=== PATIENT | female | born 1960 | race Caucasian/White ===

== ENCOUNTER 2023-11-24 08:45 | Day surgery (SDC) | payer OTHER ==
[2023-11-18 16:24] VITALS: BP 109/70
[~2023-11-24] VITALS: Ht 170.2 cm; Wt 79.5 kg
--- NOTE | ~2023-11-24 | OR ---
[facility] [address], [place] [address] [address] DATE OF OPERATION: 11/24/2023 SURGEON: Henrik Kelley MD PREOPERATIVE DIAGNOSIS: Right fifth metatarsal fracture. POSTOPERATIVE DIAGNOSIS: Right fifth metatarsal fracture. PROCEDURE PERFORMED: Open reduction and internal fixation, right fifth metatarsal. BURNISHER AND BUMPER: Jennifer Mendez PA-C. Jennifer was present and critical for all portions of procedure. ANESTHESIA: General. TOURNIQUET TIME: 32 minutes. IMPLANTS: A six hole Synthes 2.0 plate with six screws. BRIEF HISTORY: Maddi is a 63-year-old female, who suffered a ground level fall fracturing her metacarpal which was displaced and foreshortened. Risks, benefits, and alternatives of surgery were discussed with her and she elected to proceed. PROCEDURE IN DETAIL: Once consent was obtained she was taken to the operating room. After adequate anesthesia she was placed on operating table on a hip bump. The leg was prepped and draped in a standard sterile fashion after placement of a proximal thigh tourniquet. The leg was then exsanguinated using Esmarch bandage. Tourniquet inflated to 250 mmHg. A straight lateral longitudinal incision was centered over the fracture, carried through the skin and subcutaneous tissue. This was taken straight down to the bone and the subperiosteal elevation anteriorly and posteriorly allowed good visualization of the fracture, which was distracted and cleared of debris. It was then levered back into PATIENT NAME: MADDI CHRISTINE OPERATIVE REPORT DATE OF : 62 REPORT #: [id number] PHYSICIAN: HENRIK KELLEY MD PCP: OTHER PCP REPORT IS CONFIDENTIAL AND NOT TO BE RELEASED WITHOUT AUTHORIZATION [facility] [address] [place] [id number], however, bone was fairly fragile, so we did break a piece off. It was then clamped in position, checked with the image intensifier and found to be in good position. The six hole plate was then placed along the lateral border and held with the central screw. Position and alignment were checked with the image intensifier and found to be good. The remaining screw holes drilled and appropriate length screws were placed with good compression across the fracture. The clamp was removed and the final radiograph showed good compression, alignment and placement of the screws. The wound was copiously irrigated with normal saline. The periosteum was closed with 3-0 Monocryl. Skin was closed with 3-0 Stratafix and sealed with Dermabond and Steri-Strips. She tolerated the procedure well. All sponge, needle, and instrument counts were correct. The wound was dressed with Allevyn, Jesus wrap and back into a fracture boot. Henrik Kelley MD BA/CHARANL /[id number] Copies: ~ PATIENT NAME: MADDI CHRISTINE OPERATIVE REPORT DATE OF : 62 REPORT #: [id number] PHYSICIAN: HENRIK KELLEY MD PCP: OTHER PCP REPORT IS CONFIDENTIAL AND NOT TO BE RELEASED WITHOUT AUTHORIZATION
[~2023-11-24 08:45] MED LIST: CEFAZOLIN SODIUM 2 GM/20 ML SYR IV SCH; IBLOOD GLUCOSE TEST STRIP 1 EA TEST VI PRN; LACTATED RINGER'S 1,000 ML IV SCH; LIDOCAINE HCL 1% 5 ML SDV INJ ONE
[2023-11-24 09:01] VITALS: BP 110/80
--- NOTE | 2023-11-24 09:14 | NUR ---
WITH PT GOING TO BREAKFAST THEN RETURNING
[2023-11-24] MEDS ORDERED: propofoL 200 MG/20 ML VIAL ONE (09:54)
[2023-11-24] MEDS ORDERED: LIDOCAINE HCL 2% 5 ML SDV ONE ×2 (09:54→10:01)
[2023-11-24] MEDS ORDERED: DEXAMETHASONE SOD PHOS 4 MG/ML VIAL ONE (10:01)
[2023-11-24] MEDS ORDERED: MIDAZOLAM HCL 2 MG/2 ML VIAL ONE (10:01)
[2023-11-24] MEDS ORDERED: Ropivacaine HCl 0.5% 30 ML VIAL ONE ×2 (10:01→10:11)
--- NOTE | 2023-11-24 10:28 | NUR ---
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
[2023-11-24] MEDS ORDERED: HYDROCODONE/APAP 10/325 1 TAB PO PRN (10:45)
[2023-11-24] MEDS ORDERED: KETOROLAC TROMETHAMINE 30 MG/ML VIAL ONE (11:24)
[2023-11-24] MEDS ORDERED: DICLOFENAC SODI75 MG PO (11:32)
[2023-11-24] MEDS ORDERED: HYDROCODON-ACE1 EAC8 PO (11:32)
--- NOTE | 2023-11-24 11:49 | NUR ---
11/24/23 Yakelin9 Kerline Bermudez 113Jose Luis- PT ARRIVES TO PACU NONAROUSABLE TO STIMULI WITH AN OPA IN PLACE. RESP EVEN AND UNLABORED. OXYGEN SAT HIGH 90'S TO 100% ON 6L VIA MASK. PT'S MOUTH SUCTIONED FOR SECRETIONS.
[2023-11-24] MEDS ORDERED: fentaNYL citrate 50 MCG/ML SDV ONE (11:51)
[2023-11-24] MEDS ORDERED: IBLOOD GLUCOSE TEST STRIP 1 EA TEST VI PRN (12:00)
[2023-11-24] MEDS ORDERED: ondansetron HCL 4 MG/2 ML VIAL IV PRN (12:00)
[2023-11-24] MEDS ORDERED: NALOXONE HCL 0.4 MG SYR IV PRN (12:00)
[2023-11-24] MEDS ORDERED: fentaNYL citrate 50 MCG/ML SDV IV PRN (12:00)
[2023-11-24 12:37] VITALS: BP 145/77
[2023-11-24 13:34] VITALS: BP 135/89
--- NOTE | 2023-11-24 13:38 | NUR ---
HAS ATE DRANK RATES PAIN 10 AND RX GIVEN.
--- NOTE | 2023-11-24 14:19 | NUR ---
1400 VOIDS 400MLS URINE. WANTS TO GO HOME.
[2023-11-24] MEDS ORDERED: DICLOFENAC SOD 75 MG TABEC PO SCH (21:00)
== END 2023-11-24 14:05 | disposition home or self-care (01) ==
LOC: DS 08:45
PROVIDERS: ATTEND Specialist
PROC: 0QSN04Z Reposition Right Metatarsal with Internal Fixation Device, Open Approach (ICD-10-PCS; principal; 2023-11-24 11:45)
DX: S92.351A Displaced fracture of fifth metatarsal bone, right foot, initial encounter for closed fracture (principal); X50.1XXA Overexertion from prolonged static or awkward postures, initial encounter; Z88.0 Allergy status to penicillin; Z88.2 Allergy status to sulfonamides
CPT/HCPCS: 73620; A9270; J0690; J1100; J1885; J2001; J2250; J2704; J2795; J3010; J7121